=== PATIENT | female | born 1960 | race Caucasian/White ===

== ENCOUNTER 2025-06-04 23:59 | Emergency (ER) | payer BC ==
[2025-06-05 00:36] LABS: #Basophils 0.05 10x3/uL (0.0-0.2); #Eosinophils 0.34 10x3/uL (0.0-0.5); #Monocytes 1.65 10x3/uL (0.0-1.1); #Neutrophils 10.58 10x3/uL (1.5-8.4); %Basophils 0.3 % (0.0-2.0); %Eosinophils 2.3 % (0.0-6.0); %Lymphocytes 13.0 % (18.0-47.0); %Monocytes 11.3 % (0.0-10.0); %Neutrophils 72.6 % (40.0-75.0); Hematocrit 47.5 % (34.9-44.5); Hemoglobin 15.6 g/dL (12.0-15.5); Mean Corpuscular Hemoglobin 28.4 pg (27.0-33.0); Mean Corpuscular Volume 86.4 fL (81.6-98.3); Platelet Count 363 10x3/uL (150-450); Red Blood Cell (RBC) Count 5.50 10x6/uL (3.90-5.03); White Blood Cell (WBC) Count 14.58 10x3/uL (3.5-10.5)
[2025-06-05 00:49] LABS: Glucose, Urine (Dipstick) Normal (Negative); Leukocyte 100 (Negative); Protein, Urine (Dipstick) 15 mg/dl (Neg-Trace); Specific Gravity, Urine 1.025 (1.005-1.030)
[2025-06-05 00:52] LABS: CAUTI Indications for Culture Alt mental st,lethar; RBC/HPF None Seen HPF (0-3)
[2025-06-05 00:53] LABS: Bacteria/HPF Rare-Few HPF (None Seen); Urine Culture Reflex No No
[2025-06-05 00:55] LABS: ALT (SGPT) 44 U/L (Less than 34); AST (SGOT) 30 U/L (11-34); Albumin 4.1 g/dL (3.1-4.5); Alkaline Phosphatase 119 U/L (40-110); Anion Gap 13 mmol/L (10-20); BUN (Urea Nitrogen) 18 mg/dL (9.8-20.1); Bilirubin, Total 0.2 mg/dL (0.3-1.2); Calc. Creatinine Clearance 0 mL/min (70-130); Calcium 10.8 mg/dL (7.8-10.44); Carbon Dioxide 25 mmol/L (23-31); Chloride 107 mmol/L (98-107); Globulin 3.3 g/dL (2.4-3.5); Glucose 97 mg/dL (80-115); Lipase 23 U/L (8-78); Magnesium 2.0 mg/dL (1.6-2.6); Potassium 4.1 mmol/L (3.5-5.1); Sodium 141 mmol/L (136-145)
[2025-06-05 00:57] LABS: Troponin I Less than 0.010 ng/mL (< 0.028)
== END 2025-06-05 02:36 | disposition home or self-care (01) ==
LOC: CSHERS 23:59
DX: R07.89 Other chest pain (principal); J45.909 Unspecified asthma, uncomplicated; E66.9 Obesity, unspecified; I25.10 Atherosclerotic heart disease of native coronary artery without angina pectoris
CPT/HCPCS: 71045; 80053; 81001; 83690; 83735; 83880; 84484; 85025; 85379; 87428; 93005